=== PATIENT | female | born 1970 | race Caucasian/White ===

== ENCOUNTER → 2025-02-12 | Emergency (ER) | payer MEDICAID ==
[~2025-02-12] VITALS: Ht 162.6 cm; Wt 50.9 kg
[~2025-02-12] MED LIST: ALBU17AE27 IH
[2025-02-12 21:03] VITALS: BP 145/98; PULSE 100; RESP 16; TEMP 98.105288; O2SAT 100
== END | disposition home or self-care (01) ==
LOC: EMS 19:15
DX: M60.9 Myositis, unspecified (principal); F41.9 Anxiety disorder, unspecified; F17.210 Nicotine dependence, cigarettes, uncomplicated; J45.909 Unspecified asthma, uncomplicated; Z98.890 Other specified postprocedural states; Z79.899 Other long term (current) drug therapy
CPT/HCPCS: 99282; Z7502